=== PATIENT | female | born 1970 | race Two or more races ===

== ENCOUNTER 2020-01-05 08:33 | Day surgery (SDC) | payer OTHER ==
[~2020-01-05 08:33] MED LIST: LOSARTAN-HCTZ1 EACH PO; NAPROXEN500 MG PO; NEURONTIN600 MG; PREVACID30 M1 PO; PROMETRIUM200 MG PO; SAVELLA50 MG PO; ZANAFLEX4 MG PO
== END 2020-01-05 13:55 | disposition home or self-care (01) ==
LOC: CIR.AMB 08:33
PROVIDERS: ATTEND Orthopaedic Surgery
DX: M77.11 Lateral epicondylitis, right elbow (principal); M66.231 Spontaneous rupture of extensor tendons, right forearm; Z20.828 Contact with and (suspected) exposure to other viral communicable diseases

== ENCOUNTER 2025-04-06 11:00 | Day surgery (SDC) | payer OTHER ==
[2025-03-30 13:30] VITALS: BP 134/80
[~2025-04-06 11:00] MED LIST changes: +AMLODIPINE BESYL5 MG PO; +CITALOPRAM HBR10 MG PO; +DULOXETINE HCL60 MG PO; +FENOFIBRATE134 MG PO; +LOSARTAN-HCTZ1 EAC1 PO
[2025-04-06] MEDS ORDERED: CEFAZOLIN SODIUM 1,000 MG VIAL ONE (12:13)
[2025-04-06] MEDS ORDERED: KETOROLAC TROMETHAMINE 30 MG VIAL ONE (12:21)
[2025-04-06] MEDS ORDERED: BUPIVACAINE HCL/MPF 0.5% 30ML VIAL ONE (12:21)
[2025-04-06] MEDS ORDERED: LIDOCAINE HCL 1% 20 ML VIAL IJ ONE (12:22)
== END 2025-04-06 16:00 | disposition home or self-care (01) ==
LOC: CIR.AMB 11:00
PROVIDERS: ATTEND Orthopaedic Surgery
DX: M66.232 Spontaneous rupture of extensor tendons, left forearm (principal); M24.822 Other specific joint derangements of left elbow, not elsewhere classified